=== PATIENT | male | born 1985 | race Caucasian/White ===

== ENCOUNTER 2021-10-23 12:50 | Outpatient (CLI) | payer OTHER | END 2021-10-23 12:51 | disposition home or self-care (01) | LOC: CSHULT 12:50 | PROVIDERS: ATTEND Family Medicine Sports Medicine | DX: U09.9 Post COVID-19 condition, unspecified (principal); I34.0 Nonrheumatic mitral (valve) insufficiency | CPT/HCPCS: 93306 ==